=== PATIENT | male | born 1945 ===

== ENCOUNTER 2022-11-21 05:42 | Day surgery (SDC) | payer OTHER | END 2022-11-21 11:35 | disposition home or self-care (01) | LOC: AMB-ENDOS 05:42 | PROVIDERS: ATTEND Surgery | DX: Z85.048 Personal history of other malignant neoplasm of rectum, rectosigmoid junction, and anus (principal); Z93.3 Colostomy status; M46.28 Osteomyelitis of vertebra, sacral and sacrococcygeal region; L89.159 Pressure ulcer of sacral region, unspecified stage ==